=== PATIENT | female | born 1950 | race Caucasian/White ===

== ENCOUNTER 2022-05-23 20:19 | Emergency (ER) | payer OTHER, MEDICAID ==
[~2022-05-23] VITALS: Ht 165.1 cm; Wt 80.7 kg
[2022-05-23 20:24] VITALS: BP_SYST 150
--- NOTE | 2022-05-23 20:29 | NUR ---
Patient triaged and placed in waiting room. VSS and patient appears in no acute distress at this time. Accompanied by DAUGHTER, awaiting available bed, and MD notified of need for MSE.
--- NOTE | 2022-05-23 20:49 | NUR ---
PT PLACED IN BED 2 AND REPORT GIVEN TO MAIKOL MARIE. PT A/O X4, VSS.
[2022-05-23] MEDS ORDERED: FAMOTIDINE 20 MG TABLET PO ONE (21:00)
[2022-05-23] MEDS ORDERED: predniSONE 20 MG TABLET PO ONE (21:00)
[2022-05-23] MEDS ORDERED: DIPHENHYDRAMINE HCL 25 MG CAPSULE PO ONE (21:00)
[2022-05-23] MEDS ORDERED: PROPARACAINE (OPTHANINE 0.5%) 15 ML DROPS OP ONE (21:00)
[2022-05-23] MEDS ORDERED: FLUORESCEIN SODIUM 1 MG OPHTHALMIC STRIP OP ONE (21:10)
[2022-05-23] MEDS ORDERED: NEOSEYEO OP (21:34)
[2022-05-23] MEDS ORDERED: DIPH25CA83 PO (21:34)
[2022-05-23] MEDS ORDERED: PRED20TA PO (21:34)
[2022-05-23 21:54] VITALS: BP_SYST 142
== END 2022-05-23 21:54 | disposition home or self-care (01) ==
LOC: SED 20:19
DX: S05.02XA Injury of conjunctiva and corneal abrasion without foreign body, left eye, initial encounter (principal); H10.213 Acute toxic conjunctivitis, bilateral; H10.13 Acute atopic conjunctivitis, bilateral; E11.9 Type 2 diabetes mellitus without complications; Z79.899 Other long term (current) drug therapy; X58.XXXA Exposure to other specified factors, initial encounter; Y93.89 Activity, other specified; Y92.89 Other specified places as the place of occurrence of the external cause; Y99.8 Other external cause status
CPT/HCPCS: 99283; Q0163; J7512